=== PATIENT | female | born 1970 | race Caucasian/White ===

== ENCOUNTER → 2024-04-28 | Outpatient (CLI) | payer OTHER, SELFPAY ==
--- NOTE | 2024-04-28 | IMM_PTH ---
PATIENT: BOUBACAR ZAMARRIPA LOC: PAT U#:[id number] AGE/SX: 54/F ROOM: RE04/28/[address]: Dr. oRnel Hood MD : 1970 BED: DIS: 04/28/2024 SPEC #: [id number] RECD: 04/29/24 11:55 STATUS: ANAM REQ #: [id number] ALBERT: 04/28/24 00:[address]: Ronel Hood DEPT: IMMUNOHISTOCHEMISTRY RECD BY: George Naik ENTERED: 04/29/24 11:56 SP TYPE: IMMUNO OTHR DR: Dr. Edwar Kearney MD Tissues: A - Right breast, NOS B - Axillary lymph node, NOS Procedures: CALPONIN-1 (add) CK5-6 (add) CK8 (add) E-CAD (add) HER2 MIRIAN (add) KI-67 (add) P53 (add) SD (add) GATA3 (add) P40 (add) ER (initial) PHYSICIAN & INSTITUTION [address] [address] SPECIMEN INFORMATION: Tissue Source: A- Right breast mass , B- Right axillary lymph node Clinical Info: Right breast biopsy Specimen Number: [id number], B CPT code: 96049,09555m4,11148p3 METHODOLOGY: Deparaffinized sections of prefer/formalin-fixed tissue or PAP/DQ stained slides are incubated with monoclonal/polyclonal antibodies/oligonucleotide probes. Localization is made via biotin free immunoperoxidase method. Appropriate controls are performed and reacted as expected. Results on target cell population are indicated in the following table: RESULTS: ANTIBODY / CLONE RESULT Block A E-Cad (ECH-6) positive CK8 ([id number]) positive Calponin-1 (LJ436A) negative CK5-6 (D5 & 1684) negative P40 (BC28) negative P53 (DO-7) focal positive nuclear staining, rare (wild type pattern) Ki-67 (30-9) positive nuclear staining, ~30% MORPHOMETRIC ANALYSIS ER (clone 6F11) 100% cells, strong intensity staining SD (clone 16/1E2) 95% cells, moderate to strong intensity staining Her-2Neu (clone CB11) 2-3+ equivocal Block B GATA3 (L50-823) positive nuclear staining The prognostic test for HER2 is performed on formalin-fixed paraffin embedded tissue. A 3+ (positive) staining pattern is defined as intense, homogeneous, complete, circumferential membranous staining in >10% of contiguous tumor cells. A similar weak (2+) staining pattern is interpreted as equivocal. NAIMA follow-up testing is recommended for all equivocal cases. Positivity/negativity for ER/SD is reported if > or < 1% of the tumor cells are immuno- reactive, respectively. The ASCO/CAP criteria is used for scoring. Reference: Journal of Clinical Oncology, 2013; 31:9359-3008 & 2010; 16:7440-9575. Ischemic time: Less than one hour. Duration of fixation: 8 Hrs; Sample Adequate: Yes. These assays have not been validated on decalcified tissues. Results should be interpreted with caution given the likelihood of false negativity on decalcified specimens or fixation greater than 72 hours. Alternative testing methods (FISH/dualISH for Her2; gene expression for ER) are recommended, if applicable. Please notify the laboratory if additional testing is required. These tests were developed and their performance characteristics determined by [facility]. They may not have been cleared or approved by the U.S. Food and Drug Administration. The FDA has determined that such clearance or approval is not necessary. The above immunohistochemical/dualISH markers are ordered and reviewed by the Pathologist. INTERPRETATION: A. Right breast mass, core biopsy: Invasive ductal carcinoma. Positive for estrogen receptors (favorable prognostic indicator). Positive for progesterone receptors (favorable prognostic indicator). Equivocal for overexpression of Her2 (DualiSH pending). B. Right axillary lymph node, biopsy: Adenocarcinoma. Positive for Yarelis-3 consistent with breast primary. PW/mr 04/30/2024 ADDENDUM ADDENDUM ADDENDUM ADDENDUM ADDENDUM ADDENDUM ADDENDUM ADDENDUM ADDENDUM ADDENDUM ADDENDUM ADDENDUM ADDENDUM ADDENDUM ADDENDUM ADDENDUM ADDENDUM ADDENDUM ADDENDUM ADDENDUM ADDENDUM 05/01/2024 13:33 ADDENDUM 05/01/2024 13:33 ADDENDUM 05/01/2024 13:33 ADDENDUM 05/01/2024 13:33 ADDENDUM 05/01/2024 13:33 IN SITU HYBRIDIZATION (NAIMA) FOR HER2 Interpretation: Negative / Not Amplified HER2 : CEP-17 Ratio: 1.06 Average HER2 Signal: 2.45 Average CEP-17 Signal: 2.3 Number of Tumor Cells Scanned: 50 Interpretative Information: The INFORM HER2 Dual NAIMA DNA Probe Cocktail assay is performed on formalin-fixed paraffin embedded tissue and determines HER2 gene status by detecting HER2 copies via silver in situ hybridization (SISH) and Chromosome 17 copies via chromogenic red in situ hybridization on tumor cells. A minimum of 20 cells representing > 10% of contiguous and homogeneous invasive tumor cells were analyzed. HER2 gene status is classified as Non-amplified (HER2/Chr17 ratio < 2.0) or Amplified (HER2/Chr17 ratio greater than or equal to 2.0). If the resulting HER2/Chr17 ratio falls within 1.8 - 2.2 (Borderline), retesting by FISH is recommended. Reference: Jere AC, Anthony LIEBERMANH, Patrice DG, et al: Recommendations for Human Epidermal Growth Factor Receptor 2 Testing in Breast Cancer: [place] Society of Clinical Oncology / College of [place] [employer] Clinical Practice Guideline Update. J Clin Oncol 31:3693-8352, 2013.
--- NOTE | 2024-04-28 12:00 | BRBX_PTH ---
PATIENT: BOUBACAR ZAMARRIPA LOC: PAT U#:[id number] AGE/SX: 54/F ROOM: RE04/28/[address]: Dr. Ronel Hood MD : 1970 BED: DIS: 04/28/2024 SPEC #: [id number] RECD: 04/28/24 13:12 STATUS: PETE REQ #: [id number] ALBERT: 04/28/24 12:[address]: Ronel Hood DEPT: SURGICAL PATHOLOGY RECD BY: Ashely Suarez ENTERED: 04/28/24 14:02 SP TYPE: BREAST BX OTHR DR: Dr. Edwar Kearney MD Tissues: A - Right breast, NOS B - Axillary lymph node, NOS Procedures: Surgery Specimen Level IV HEADER OPERATION: Right breast mass biopsy PRE-OP DIAGNOSIS: Right breast biopsy TISSUE SUBMITTED: A- Right breast mass tissue, B- Right axillary lymph node Ischemic Time: 1 minute Fixation Time: 8 hours ADDENDUM ADDENDUM ADDENDUM ADDENDUM ADDENDUM ADDENDUM 05/15/2024 13:50 ADDENDUM 05/16/2024 09:12 ADDENDUM 05/15/2024 13:50 ADDENDUM 05/15/2024 13:50 ADDENDUM 05/15/2024 13:50 ADDENDUM 05/15/2024 13:50 PD-L1 (KEYGarlik) IMMUNOHISTOCHEMICAL ANALYSIS FROM [facility] RESULTS: Tumor proportion score: 2-3% positive Please see complete report in e-chart or EMR PD-L1 (KEYTRTakes) IMMUNOHISTOCHEMICAL ANALYSIS FROM [facility] RESULTS (BLOCK A1): Tumor proportion score: 15-20% / POSITIVE Please see complete report in e-chart or EMR MICROSCOPIC DIAGNOSIS A. Right breast, core biopsy: Invasive ductal carcinoma. See cancer case summary in comment section. B. Right axillary lymph node, biopsy: Adenocarcinoma. Lymphoid tissue not identified. See comment. 04/29/2024 COMMENT A. INVASIVE BREAST CANCER SUMMARY: Procedure: Needle core biopsy Specimen Laterality: right breast Tumor site: Not specified Histologic type: Invasive ductal carcinoma Provisional Histologic grade: 2 Glandular/tubule Differentiation Score: 3 Nuclear Pleomorphism Score: 3 Mitotic Rate Score: 1 Tumor Size (greatest dimension): 0.9cm in greatest length Ductal Carcinoma In situ: Not identified Angiolymphatic Invasion: Not identified Microcalcifications: Not identified Additional Findings: None Breast Marker Study: [id number] - PENDING ER: positive (100%, strong intensity) IL: positive (95%, moderate to strong intensity Her2: equivocal (2-3+) Ki67: positive, moderate, 30% [id number]: pending Further immunohistochemistry done ([id number]) supports the above diagnosis. The above summary is in compliance with [employer] [place] Path[employer] (CAP) Cancer Protocols Checklist and [place] Joint Committee on Cancer (AJCC), Staging Manual, 8th Ed. B. Immunohistochemistry ([id number]) supports the above diagnosis. Case discussed with Dr. Hood by Dr. Giron 04/29/24 via telephone. Case has been reviewed in consultation with Dr. Mayers who concurs with the above diagnosis. IDC:DIANELYS MICROSCOPIC DESCRIPTION Slides are reviewed. GROSS DESCRIPTION A. Received in fixative is one container labeled with the patient's name and designated Right breast. The specimen consists of multiple elongated fragments of scott-yellow fibroadipose tissue that in aggregate measure 1.5 x 0.2 x 0.1 cm. The specimen is totally submitted in one cassette. B. Received in fixative is one container labeled with the patient's name and designated Right axillary lymph node. The specimen consists of multiple irregular fragments of scott-yellow adipose tissue that in aggregate measure 1.5 x 0.4 x 0.1 cm. The specimen is totally submitted in one cassette. 04/28/2024 TC:0 [facility]:[id number] ADDENDUM ADDENDUM ADDENDUM ADDENDUM ADDENDUM ADDENDUM 05/15/2024 13:50 ADDENDUM 05/16/2024 09:12 ADDENDUM 05/15/2024 13:50 ADDENDUM 05/15/2024 13:50 ADDENDUM 05/15/2024 13:50 ADDENDUM 05/15/2024 13:50 PD-L1 (KEYTRTakes) IMMUNOHISTOCHEMICAL ANALYSIS FROM [facility] RESULTS: Tumor proportion score: 2-3% positive Please see complete report in e-chart or EMR PD-L1 (KEYTRUDA) IMMUNOHISTOCHEMICAL ANALYSIS FROM [facility] RESULTS (BLOCK A1): Tumor proportion score: 15-20% / POSITIVE Please see complete report in e-chart or EMR
--- NOTE | 2024-04-28 12:00 | BRBX_PTH ---
PATIENT: BOUBACAR ZAMARRIPA LOC: PAT U#:[id number] AGE/SX: 54/F ROOM: RE04/28/[address]: Dr. Ronel Hood MD : 1970 BED: DIS: 04/28/2024 SPEC #: [id number] RECD: 04/28/24 13:12 STATUS: ANAM REJohan #: [id number] ALBERT: 04/28/24 12:[address]: Ronel Hood DEPT: SURGICAL PATHOLOGY RECD BY: Ashely Suarez ENTERED: 04/28/24 14:02 SP TYPE: BREAST BX OTHR DR: Dr. Edwar Kearney MD Tissues: A - Right breast, NOS B - Axillary lymph node, NOS Procedures: Surgery Specimen Level IV HEADER OPERATION: Right breast mass biopsy PRE-OP DIAGNOSIS: Right breast biopsy TISSUE SUBMITTED: A- Right breast mass tissue, B- Right axillary lymph node Ischemic Time: 1 minute Fixation Time: 8 hours MICROSCOPIC DIAGNOSIS A. Right breast, core biopsy: Invasive ductal carcinoma. See cancer case summary in comment section. B. Right axillary lymph node, biopsy: Adenocarcinoma. Lymphoid tissue not identified. See comment. 04/29/2024 COMMENT A. INVASIVE BREAST CANCER SUMMARY: Procedure: Needle core biopsy Specimen Laterality: right breast Tumor site: Not specified Histologic type: Invasive ductal carcinoma Provisional Histologic grade: 2 Glandular/tubule Differentiation Score: 3 Nuclear Pleomorphism Score: 3 Mitotic Rate Score: 1 Tumor Size (greatest dimension): 0.9cm in greatest length Ductal Carcinoma In situ: Not identified Angiolymphatic Invasion: Not identified Microcalcifications: Not identified Additional Findings: None Breast Marker Study: [id number] - PENDING ER: positive (100%, strong intensity) [place]: positive (95%, moderate to strong intensity Her2: equivocal (2-3+) Ki67: positive, moderate, 30% [id number]: pending Further immunohistochemistry done ([id number]) supports the above diagnosis. The above summary is in compliance with [employer] [place] Path[employer] (CAP) Cancer Protocols Checklist and [place] Joint Committee on Cancer (AJCC), Staging Manual, 8th Ed. B. Immunohistochemistry ([id number]) supports the above diagnosis. Case discussed with Dr. Hood by Dr. Giron 04/29/24 via telephone. Case has been reviewed in consultation with Dr. Mayers who concurs with the above diagnosis. IDC:SJ MICROSCOPIC DESCRIPTION Slides are reviewed. GROSS DESCRIPTION A. Received in fixative is one container labeled with the patient's name and designated Right breast. The specimen consists of multiple elongated fragments of scott-yellow fibroadipose tissue that in aggregate measure 1.5 x 0.2 x 0.1 cm. The specimen is totally submitted in one cassette. B. Received in fixative is one container labeled with the patient's name and designated Right axillary lymph node. The specimen consists of multiple irregular fragments of scott-yellow adipose tissue that in aggregate measure 1.5 x 0.4 x 0.1 cm. The specimen is totally submitted in one cassette. 04/28/2024 TC:0 [facility]:[id number] ADDENDUM ADDENDUM ADDENDUM ADDENDUM ADDENDUM ADDENDUM ADDENDUM ADDENDUM 05/16/2024 09:16 ADDENDUM 05/26/2024 08:50 ADDENDUM 05/16/2024 09:16 ADDENDUM 05/16/2024 09:16 ADDENDUM 05/16/2024 09:16 ADDENDUM 05/16/2024 09:16 PD-L1 ([email or web address]) IMMUNOHISTOCHEMICAL ANALYSIS FROM [facility] RESULTS (BLOCK A1): Tumor proportion score: 15-20% / positive RESULTS (BLOCK B1): Tumor proportion score: 2-3% positive Please see complete report in e-chart or EMR ONC3DNASurveying And Mapping (SAM) ADVANCED BREAST CANCER NGS REPORT FROM [facility] BLOCK A-1 RESULT SUMMARY: Abnormal TUMOR TYPE: Ductal Carcinoma CLINICAL INFORMATION: Right breast core biopsy showed ductal carcinoma (Testing 45-A1). HISTOPATHOLOGIC REVIEW: Tumor is present and is estimated to comprise >50% of nuclei in the sample. DETECTED GENOMIC ALTERATIONS: Tier II: Variants of potential clinical significance FOXA1 p. ([id number]) PIK3CA p. ([id number]) IMMUNOTHERAPY BIOMARKERS: TUMOR MUTATION BURDEN: LOW (4.7 Mutation / MB) MICROSATELLITE INSTABILITY: MSI NEGATIVE (4.17%) ONC3DNAC[facility]Mem[facility] [facility] ADVANCED BREAST CANCER NGS REPORT FROM [facility] BLOCK B-1 RESULT SUMMARY: Abnormal TUMOR TYPE: Adenocarcinoma CLINICAL INFORMATION: Right axillary lymph node biopsy showed adenocarcinoma (Testing performed on [id number] B1). HISTOPATHOLOGIC REVIEW: Tumor is present and is estimated to comprise >50% of nuclei in the sample. DETECTED GENOMIC ALTERATIONS: Tier I: Variants of strong clinical significance PIK3CA p. ([id number]) IMMUNOTHERAPY BIOMARKERS: TUMOR MUTATION BURDEN: LOW (5.5 Mutation / MB) MICROSATELLITE INSTABILITY: MSI NEGATIVE (3.54%) Please see complete report in e-chart or EMR
== END | disposition home or self-care (01) ==
PROVIDERS: PCP Family Medicine; Referring Provider Surgery; Visit Provider Surgery
DX: C50.911 Malignant neoplasm of unspecified site of right female breast (principal); C77.9 Secondary and unspecified malignant neoplasm of lymph node, unspecified
CPT/HCPCS: 88305; 88341; 88342

== ENCOUNTER → 2024-04-29 | Outpatient (CLI) | payer OTHER, SELFPAY ==
--- NOTE | 2024-04-29 09:20 | BI_ITS ---
MAMMOGRAPHY - BILATERAL DIAGNOSTIC REASON FOR EXAM: Female, 54 years old. Right breast mass. PERTINENT HISTORY: Mother with breast cancer. Grandmother with breast cancer. TECHNIQUE: Digital bilateral breast betty (3D mammographic acquisition) in the CC and MLO projections. 2-D mediolateral oblique (MLO) and craniocaudad (CC) views of both breasts were obtained. CAD: Full Field Digital Mammography with Computer Added Detection was performed. COMPARISON: Comparison is made with prior study dated April 12, 2016. FINDINGS: Breast Composition: There are scattered areas of fibroglandular density. There is a 4.2 cm x 5.6 cm mass in the deep upper central portion of the right breast. There is also evidence of a spiculated mass measuring 1.2 cm x 0.7 cm in the slightly upper lateral aspect of the right breast. Enlarged right axillary lymph nodes. Correlation with ultrasound recommended. No other significant abnormalities are identified. BI/DIAG MAMM W/CAD, BILAT IMPRESSION: Dominant breast mass in the right breast as described with enlargement of the right axillary lymph nodes. Correlation with ultrasound recommended. ASSESSMENT CATEGORY: BIRADS Category 0: Incomplete. Need additional imaging evaluation. A letter regarding these results will be sent to the patient by the facility within 30 days. Approximately 10% of breast cancers are not detected by mammography. A normal mammogram should not delay biopsy of a clinically suspicious abnormality. Electronically Signed: Garcia Little MD at 10:53 EST ,
--- NOTE | 2024-04-29 09:20 | US_ITS ---
STUDY: ULTRASOUND BREAST - RIGHT REASON FOR EXAM: Female, 54 years old. Right breast mass. TECHNIQUE: Axial and longitudinal images of the RIGHT breast were performed with a high resolution ultrasound transducer. # OF IMAGES: 23 COMPARISON: Comparison is made with prior mammogram done earlier in the day. FINDINGS: RIGHT Breast: The dominant mass corresponds to a 4.6 cm x 3.3 cm x 5.4 cm heterogeneous hypoechoic irregular mass with increased vascularity at the 1:00 position breast at 4 cm from the nipple. Biopsy recommended. There is also evidence of a 1 cm x 0.8 cm x 1 cm hypoechoic irregular nodule with shadowing and irregular borders at the 10:00 breast at 4 cm from nipple. Biopsy recommended. 3. Suspicious lymph nodes are seen in the right axilla. US/Breast Complete Unilateral IMPRESSION: Masses seen in the breast as described. Biopsy recommended. Abnormal appearance of right axillary lymph nodes. ASSESSMENT CATEGORY: BIRADS Category 4: Suspicious - Biopsy Should Be Considered. A letter regarding these results will be sent to the patient by the facility within 30 days. Electronically Signed: Garcia Little MD at 14:03 EST ,
== END | disposition home or self-care (01) ==
LOC: OPBI 09:20
PROVIDERS: PCP Family Medicine; Referring Provider Family Medicine; Visit Provider Family Medicine
DX: R05.9 Cough, unspecified (principal); N63.12 Unspecified lump in the right breast, upper inner quadrant
CPT/HCPCS: 76641; 77062; 77066; G0279

== ENCOUNTER → 2024-05-06 | Outpatient (CLI) | payer OTHER, SELFPAY | END | disposition home or self-care (01) | PROVIDERS: PCP Family Medicine; Referring Provider Surgery; Visit Provider Surgery | DX: C50.211 Malignant neoplasm of upper-inner quadrant of right female breast (principal); R93.7 Abnormal findings on diagnostic imaging of other parts of musculoskeletal system | CPT/HCPCS: 78815; A9552 ==

== ENCOUNTER → 2024-05-16 | Outpatient (CLI) | payer OTHER, SELFPAY ==
--- NOTE | 2024-05-16 16:54 | MRI_ITS ---
EXAM: MR LUMBAR SPINE WITHOUT AND WITH INTRAVENOUS CONTRAST CLINICAL INDICATION: ADENOCARCINOMA OF LYMPH NODE F/U TO PET SCAN TECHNIQUE: Multiplanar and multisequence MR images of the lumbar spine without and with intravenous contrast. CONTRAST: IV 13CC clariscan COMPARISON: PET CT scan 05/06/2024 FINDINGS: VERTEBRAE: Diffuse heterogeneous bone marrow signal intensity within the lumbar vertebral bodies as well as within the visualized portions of T11 and T12. Diffuse abnormal contrast enhancement within the vertebral bodies. Lesions within L1 and L2 demonstrate bright T1 and T2 signal intensity and decreased signal intensity on STIR images indicating fat-containing hemangiomata. Remainder of the vertebral body lesions related to metastatic disease. Superior endplate deformity of the T11, T12 and L4 vertebral bodies consistent with pathologic fractures. L4 compression appears to be acute/subacute. SPINAL CORD: Normal. Normal position and signal intensity of the conus medullaris. SOFT TISSUES: Normal. No evidence of epidural or paraspinal soft tissue metastasis. DISCS/SPINAL CANAL/NEURAL FORAMINA: L1-L2: Normal. Normal disc height and morphology. Normal spinal canal and lateral recesses. Normal neuroforamina. L2-L3: L2-3: Disc space narrowing. No disc protrusion. No significant spinal or neural foraminal stenosis. L3-L4: L3-4: Disc space narrowing. No disc protrusion. No spinal stenosis. Mild narrowing of the neural foramina related to facet arthropathy. L4-L5: L4-5: Ligamentous hypertrophy and facet arthropathy. No disc protrusion. No spinal stenosis. Bilateral neural foraminal narrowing related to facet arthropathy. L5-S1: Disc space narrowing and associated Modic type II endplate changes. No disc herniation. No spinal stenosis. Prominent narrowing of neural foramina related to facet arthropathy and vertebral body hypertrophy. MRI/Spine Lumbar W/WO Contrast IMPRESSION: 1. Diffuse metastatic disease of the visualized spine. Chronic T11 and T12 compression fractures. Subacute L4 superior endplate compression fracture. 2. No spinal stenosis. 3. Multilevel neural foraminal narrowing as described. Electronically Signed: Robert Adame MD at 16:15 EST ,
--- NOTE | 2024-05-16 16:59 | MRI_ITS ---
EXAM: MR THORACIC SPINE WITHOUT AND WITH INTRAVENOUS CONTRAST CLINICAL INDICATION: ADENOCARCINOMA OF LYMPH NODE F/U TO PET SCAN TECHNIQUE: Multiplanar and multisequence MR images of the thoracic spine without and with intravenous contrast. CONTRAST: IV 13 cc CLARISCAN COMPARISON: No relevant prior studies available. FINDINGS: VERTEBRAE: Diffuse metastatic disease involving the thoracic vertebral bodies noted with largest lesions involving T11-T12 both of which associated with compression deformity of the superior endplate. No significant loss in vertebral body height. No retrolisthesis or significant retropulsion. Mild vertebral body hypertrophy noted posteriorly on the left at T6-7, T7-8 and T8-9. There is preservation of the normal thoracic kyphosis. No scoliosis. DISCS/SPINAL CANAL/NEURAL FORAMINA: Intervertebral discs are fairly well-maintained. No disc herniation. No significant spinal or neural foraminal stenosis. SPINAL CORD: Normal. Normal in signal and morphology. Normal conus medullaris. SOFT TISSUES: Normal. No evidence of epidural or paraspinal soft tissue mass lesions. LUNGS AND PLEURAL SPACES: Multiple bilateral pulmonary nodules noted. MEDIASTINUM: Prominent mediastinal lymphadenopathy. MRI/Spine Thoracic W/WO Contrast IMPRESSION: 1. Diffuse metastatic disease involving the thoracic vertebral bodies without soft tissue component. 2. Mild compression deformities of the T11 and T12 vertebral bodies. 3. No spinal or neural foraminal stenosis. 4. Evidence of metastatic disease to the lungs and mediastinum. Electronically Signed: Robert Adame MD at 17:00 EST ,
== END | disposition home or self-care (01) ==
LOC: MRI 16:38
PROVIDERS: PCP Family Medicine; Referring Provider Internal Medicine Medical Oncology; Visit Provider Internal Medicine Medical Oncology
DX: C77.9 Secondary and unspecified malignant neoplasm of lymph node, unspecified (principal); C50.911 Malignant neoplasm of unspecified site of right female breast
CPT/HCPCS: 72157; 72158; A9575

== ENCOUNTER → 2024-06-16 | Outpatient (CLI) | payer OTHER, SELFPAY ==
--- NOTE | 2024-06-16 07:23 | MRI_ITS ---
EXAM: MR HEAD WITHOUT AND WITH INTRAVENOUS CONTRAST CLINICAL INDICATION: ADENOCARCINOMA OF LYMPH NODE TECHNIQUE: Multiplanar and multisequence MR images of the brain were obtained without and with intravenous contrast. CONTRAST: IV 14ml Clariscan COMPARISON: No relevant prior studies available. FINDINGS: BRAIN AND EXTRA-AXIAL SPACES: No focal signal abnormality throughout the brain parenchyma in all pulse sequences. No intra- or extra-axial hemorrhage. No evidence of acute infarct. No intracranial mass or mass effect. There is preservation of the stevens/white matter interface. Posterior fossa structures are unremarkable. Ventricles are appropriate for age. No hydrocephalus. Basal cisterns are patent. Following IV contrast administration, there are no abnormally enhancing lesions intra-axially and extra-axially. SELLA: Unremarkable. Normal sella turcica, pituitary gland, infundibular stalk, optic chiasm and hypothalamus. AUDITORY SYSTEM: Unremarkable. The internal auditory canals are patent. BONES/JOINTS: Unremarkable. No discrete lytic or blastic abnormalities. SINUSES: Unremarkable as visualized. Clear. MASTOID AIR CELLS: Unremarkable as visualized. Clear. ORBITS: Unremarkable as visualized. Both globes, extraocular muscles, optic nerves and retrobulbar fat appear unremarkable. VASCULATURE: Unremarkable as visualized. Normal flow voids in the major intracranial circulation. MRI/Brain W/WO Contrast IMPRESSION: Negative MRI brain without and with intravenous contrast. Electronically Signed: Vito Tatum MD at 12:40 EST ,
== END | disposition home or self-care (01) ==
LOC: MRI 07:15
PROVIDERS: PCP Family Medicine; Referring Provider Internal Medicine Medical Oncology; Visit Provider Internal Medicine Medical Oncology
DX: C50.911 Malignant neoplasm of unspecified site of right female breast (principal); C77.9 Secondary and unspecified malignant neoplasm of lymph node, unspecified
CPT/HCPCS: 70553; A9575